=== PATIENT | female | born 1940 | race Caucasian/White ===

== ENCOUNTER 2018-02-19 10:25 | Day surgery (SDC) | payer MEDICARE ==
[2018-02-18 15:30] VITALS: BMI 23.4
[2018-02-19 10:53] LABS: Hemoglobin 13.9 g/dL (12.0-16.0)
[2018-02-19 11:17] LABS: Anion Gap 13 mmol/L (10-20); BUN (Urea Nitrogen) 19 mg/dL (9.8-20.1); Calc. Creatinine Clearance 60 mL/min (70-130); Calcium 9.9 mg/dL (7.8-10.44); Carbon Dioxide 31 mmol/L (23-31); Chloride 95 mmol/L (98-107); Estimated GFR-MDRD 82; Glucose 128 mg/dL (83-110); Potassium 4.2 mmol/L (3.5-5.1); Sodium 135 mmol/L (136-145)
[2018-02-19] MEDS ORDERED: Oxymetazoline HCl 0.05% ( 15 ML ) ONE ×2 (14:04→14:56)
[2018-02-19] MEDS ORDERED: Lidocaine 1% w/Epinephrine 1:100K 30 ML VIAL ONE (14:04)
[2018-02-19] MEDS ORDERED: Fentanyl 250 MCG/5 ML VIAL ONE (14:07)
[2018-02-19] MEDS ORDERED: Bacitracin Zinc Ointment 30 gm TUBE ONE (14:56)
[2018-02-19] MEDS ORDERED: Ondansetron HCl/PF 4 MG/2 ML Vial ONE (15:12)
[2018-02-19] MEDS ORDERED: Glycopyrrolate 0.2 MG/ML 5 ML SYRINGE ONE (15:12)
[2018-02-19] MEDS ORDERED: PROPOFOL 200 MG/20 ML VIAL ONE (15:12)
[2018-02-19] MEDS ORDERED: Dexamethasone 20 MG/5 ML VIAL ONE (15:12)
[2018-02-19] MEDS ORDERED: Lidocaine 1% PF 5 ML VIAL ONE (15:12)
[2018-02-19] MEDS ORDERED: Fentanyl 100 MCG/2 ML VIAL ONE ×2 (15:54→16:12)
--- NOTE | 2018-02-20 10:58 | OP ---
PREOPERATIVE DIAGNOSES: 1. Right chronic rhinosinusitis. 2. Right allergic fungal sinusitis. 3. Right nasal obstruction. POSTOPERATIVE DIAGNOSES: 1. Right chronic rhinosinusitis. 2. Right allergic fungal sinusitis. 3. Right nasal obstruction. PROCEDURES: 1. Right endoscopic sinus surgery, total ethmoidectomies with removal of tissue. 2. Right endoscopic sinus surgery, maxillary antrostomy with removal of tissue. 3. Right endoscopic sinus surgery, frontal sinusotomy with removal of tissue. 4. Right endoscopic sinus surgery, sphenoidotomies with removal of tissue. 5. Intraoperative CT interpretation and image-guided setup via landmark, cranial-based navigation [facility] SURGEON: Deangelo Morales M.D. ESTIMATED BLOOD LOSS: 50 mL. COMPLICATIONS: None. ANESTHESIA: GETA. PROCEDURE IN DETAIL: The patient was taken to the operating room and placed supine on the table. Ge neral endotracheal anesthesia was obtained by the Anesthesia staff. Tube was secured in the left low er lip. The patient was placed in the beach chair position. Following this, the landmark image-guid ed navigation system was set up, calibrated, and was noted to be within acceptable accuracy. Followi ng this, the 1% lidocaine with 1:100,000 epinephrine, a total of 10 mL was injected into the right na deana septum, inferior turbinates, and the visualized portions of the middle meatus. Large polypoid gr anulation tissue was found throughout the nasal cavity. This was biopsied and sent for cultures, in the ethmoidal area, maxillary area, and in the nasal cavity. Following this, the microdebrider was a lso set up with the navigational system, was used to remove the remnant of the uncinate as well as th e middle turbinate remnant. There was a large fungal ball that was eroding the medial maxillary wall as well as the majority ethmoidal sinuses. This was removed. It was removed using curved suction a nd straight suctions and Blakesley forceps along with the navigational system. Following this, the m ajority of the medial maxillary wall was removed using the microdebrider and a straight Blakesley for ceps. Following this, the ethmoidal cells were opened in their entirety using a navigational system and the sphenoid sinus was punctured and was widened medially and inferiorly using the microdebrider. Fungal debris was removed from nearly every sinus. The curved microdebrider along with the curved suction was used to further resect and remove cells from the frontal sinus area on this right side as well as remove fungal tissue and inflamed mucosa. Following this, the nasal cavity was irrigated. Mirapex was placed. The patient tolerated the procedure well.
[2018-02-22 14:13] LABS: Fungus Stain Final report (.); Fungus Stain Result 1 Hyphae observed (.)
== END 2018-02-19 17:37 | disposition home or self-care (01) ==
LOC: SDC 10:25
PROVIDERS: ATTEND Otolaryngology Plastic Surgery within the Head & Neck
PROC: 8E09XBZ Computer Assisted Procedure of Head and Neck Region (ICD-10-PCS; principal; 2018-02-19)
PROC: 09TU8ZZ Resection of Right Ethmoid Sinus, Via Natural or Artificial Opening Endoscopic (ICD-10-PCS; 2018-02-19)
PROC: 099Q8ZZ Drainage of Right Maxillary Sinus, Via Natural or Artificial Opening Endoscopic (ICD-10-PCS; 2018-02-19)
PROC: 09BS8ZZ Excision of Right Frontal Sinus, Via Natural or Artificial Opening Endoscopic (ICD-10-PCS; 2018-02-19)
PROC: 09CW8ZZ Extirpation of Matter from Right Sphenoid Sinus, Via Natural or Artificial Opening Endoscopic (ICD-10-PCS; 2018-02-19)
DX: J32.8 Other chronic sinusitis (principal); J34.3 Hypertrophy of nasal turbinates; B49 Unspecified mycosis; Z88.0 Allergy status to penicillin; Z79.899 Other long term (current) drug therapy
CPT/HCPCS: 36415; 80048; 85014; 85018; 87070; 87077; 87102; 87186; 87205; 87206; 88305; 93005; 93010; 96374; J0131; J1100; J2001; J2405; J2704; J3010